=== PATIENT | female | born 1960 | race Two or more races ===

== ENCOUNTER → 2024-11-07 | Emergency (ER) | payer OTHER ==
[~2024-11-07] VITALS: Ht 167.6 cm; Wt 94.3 kg
[~2024-11-07] MED LIST: COZAAR50 MG PO; FAMOTIDINE/PF 20 MG/2 ML VIAL IV PUSH STA; FAMOTIDINE/PF 20 MG/2 ML VIAL ONE; MOUNJARO7.5 MG/0.5 SQ; ONDANSETRON HCL 2 MG/ML VIAL IV STA; ONDANSETRON HCL 2 MG/ML VIAL ONE
[2024-11-07 11:19] LABS: HEMATOCRIT 37.7 % (36.0-45.00); HEMOGLOBIN 12.1 g/dL (12.0-15.00); MEAN CELL VOLUME 85.7 fL (80.00-100.00); MEAN CORPUSCULAR HEMOGLOBIN 27.6 pg (27.00-32.0); MEAN CORPUSCULAR HGB CONC 32.2 g/dl (32.0-36.0); PLATELET COUNT 338 K/uL (150-450); RED BLOOD COUNT 4.39 M/uL (4.00-6.00); RED CELL DISTRIBUTION WIDTH 15.9 % (11.5-14.5)
[2024-11-07 11:45] LABS: ALBUMIN 3.3 gm/dL (3.4-5.0); BILIRUBIN TOTAL 0.3 mg/dL (0.3-1.2); CALCIUM 9.7 mg/dL (8.5-10.1); CREATININE SERUM 0.61 mg/dL (0.55-1.02); GFR 98.74; GLOBULINA 4.5 G/DL (2.4-3.5); POTASSIUM 4.56 mEq/L (3.5-5.1); TOTAL PROTEIN 7.8 gm/dL (6.4-8.2)
== END | disposition home or self-care (01) ==
LOC: ER 10:05
PROVIDERS: General Practice
DX: R10.13 Epigastric pain (principal); R10.9 Unspecified abdominal pain
CPT/HCPCS: 36415; 96365; 99282; J2405; J3490